=== PATIENT | female | born 1985 | race Caucasian/White ===

== ENCOUNTER 2022-05-03 09:34 | Outpatient (CLI) | payer BC, SELFPAY ==
--- NOTE | 2022-05-03 09:48 | US_ITS ---
WS: [id number] ULTRASOUND BREAST BILATERAL TECHNIQUE: Ultrasound bilateral breast focused area of concern. CLINICAL INFORMATION: R BREAST MASS/L BREAST MASS COMPARISON: None. FINDINGS: RIGHT BREAST: Ultrasound RIGHT breast in the areas of patient concern at the 10:00 position. Hypoecho ic lesion measuring 3.9 x 2.6 x 4.9 mm technically indeterminate at the 10:00 position, 1 cm from the nipple. Recommend 6 month follow-up ultrasound of this lesion. Otherwise incidental underlying subcentimeter cysts. These have a benign appearance. In the RIGHT axi lla, there are several enlarged lymph nodes with partial replacement of the fatty hilum. Largest lymp h nodes measure 2.6 x 1.5 x 2.1 CM. LEFT BREAST: Ultrasound LEFT breast in the areas of concern at the 12:00 1:00 2:00 and 3:00 positions near the areola. Normal underlying parenchymal tissue. No suspicious cystic or solid lesions. Incide ntal ductal dilatation of the 3:00 position near the areola. LEFT axilla demonstrates multiple enlarged lymph nodes similar to the RIGHT side the largest measures 2.3 x 1.9 x 2.1 cm with partial replacement of the fatty hilum. These are indeterminate and consider further evaluation with ultrasound-guided biopsy of the largest LEFT axillary lymph node. US/US breast BI limited* [id number] IMPRESSION: Enlarged lymph nodes LEFT greater than RIGHT axilla with partial re placement of the fatty hilum worse in the LEFT. Recommend further evaluation wi th ultrasound-guided biopsy. LEFT BREAST: BI-RADS 4 SUSPICIOUS FOLLOW UP: ULTRASOUND-GUIDED BIOPSY LEFT AXILLARY LYMPH NODE RECOMMENDED RIGHT BREAST: BI-RADS 3 PROBABLY BENIGN FOLLOW UP: 6 month RIGHT breast ultrasound Hypoechoic lesion RIGHT breast measuring 3.9 x 2.6 x 4.9 mm indeterminant but m ay be complex cyst at the 10:00 position 1 cm from the nipple. Recommend 6 bobo h ultrasound follow-up of this lesion with RIGHT breast ultrasound.
== END 2022-05-03 09:35 | disposition home or self-care (01) ==
PROVIDERS: PCP Electrodiagnostic Medicine; Visit Provider Electrodiagnostic Medicine
DX: N60.01 Solitary cyst of right breast (principal); N60.42 Mammary duct ectasia of left breast; N63.11 Unspecified lump in the right breast, upper outer quadrant; N63.25 Unspecified lump in the left breast, overlapping quadrants
CPT/HCPCS: 76642

== ENCOUNTER 2022-06-04 12:29 | Outpatient (CLI) | payer BC, SELFPAY ==
--- NOTE | 2022-06-04 12:42 | US_ITS ---
WS: [id number] ULTRASOUND GUIDED BIOPSY LEFT AXILLARY LYMPH NODE. HISTORY: ENLARGED LYMPH NODES Procedure, risks, and complications are explained to the patient. Consent was obtained. Skin is clean sed with ChloraPrep and anesthetized with 1% buffered lidocaine. Biopsy performed with 20-gauge achieve needle. LEFT axillary lymph node is identified. Multiple core biopsies are performed. Specimen is placed in both RPMI and formalin as requested by pathology. No co mplications. US/US bx lymph breast/ax [id number] IMPRESSION: 1. Uncomplicated LEFT axillary lymph node biopsy. Pathology: Benign lymphoid material, negative for malignancy. Flow cytometry st udies will be performed and reported separately.
[2022-06-06 06:10] LABS: Lymphoma Profile (BBPL) See Report
== END 2022-06-04 12:30 | disposition home or self-care (01) ==
LOC: RAD 12:36
PROVIDERS: PCP Electrodiagnostic Medicine; Visit Provider Electrodiagnostic Medicine
DX: R59.9 Enlarged lymph nodes, unspecified (principal)
CPT/HCPCS: 38505; 76942; 88184; 88185; 88305